=== PATIENT | male | born 1940 | race Caucasian/White ===

== ENCOUNTER 2017-04-01 12:30 | Outpatient (RCR) | payer MEDICARE, BC ==
[2006-06-30 08:15] VITALS: TEMP 97.8
[2017-04-13] MEDS ORDERED: ZYRTEC 10MG10 MG PO (19:47)
[2017-04-13] MEDS ORDERED: ZOCOR 20MG20 MG PO (19:48)
[2017-04-13] MEDS ORDERED: TENORMIN 2525 MG/TAB PO (19:48)
[2017-04-16] MEDS ORDERED: VANCOCIN HCL1 GM IV (14:32)
[2017-04-16] MEDS ORDERED: ROCEPHIN 2GM VIAL21 IV (14:32)
[2017-05-07] MEDS ORDERED: CUBICIN 500MG500 MG IV (14:42)
[2017-05-07] MEDS ORDERED: CIPRO 500MG TA500 MG PO (14:43)
== END 2017-06-07 | disposition still patient (30) ==
LOC: MKS.ESL.PT
DX: M54.16 Radiculopathy, lumbar region (principal); M54.14 Radiculopathy, thoracic region
CPT/HCPCS: G8978-GP; G8979-GP

== ENCOUNTER 2017-04-13 18:54 | Inpatient (IN) | payer MEDICARE, BC ==
[~2017-04-13] VITALS: Ht 175.3 cm; Wt 84.2 kg
[2017-04-13 19:20] VITALS: BP 161/77; PULSE 95; TEMP 99.2
[2017-04-13] MEDS ORDERED: ZYRTEC 10MG10 MG PO (19:47)
[2017-04-13] MEDS ORDERED: TENORMIN 2525 MG/TAB PO (19:48)
[2017-04-13] MEDS ORDERED: ZOCOR 20MG20 MG PO (19:48)
[2017-04-13 20:46] LABS: BASO % 0.3 % (0.0-2.0); EOS # 0.3 (0.0-0.7); GRAN # 6.3 (1.4-6.5); GRAN % 70.4 % (42.2-75.2); LYMPH # 1.5 (1.2-3.4); LYMPH % 17.1 % (20.0-51.0); MEAN CELL VOLUME 90 fl (80.0-100.0); MEAN CORPUSCULAR HGB CONC 33 g/dl (33.0-37.0); MEAN PLATELET VOLUME 9.7 fl (7.4-10.4); MONO # 0.8 (0.1-0.6); MONO % 8.9 % (1.7-9.3); PLATELET COUNT 269 K/mm3 (130-400); RED BLOOD COUNT 3.85 M/mm3 (4.20-5.60)
[2017-04-13 20:47] LABS: HEMATOCRIT 34.5 % (42.0-52.0); HEMOGLOBIN 11.3 g/dl (13.5-18.0); INR 1.3 (0.8-3.0); MEAN CORPUSCULAR HEMOGLOBIN 29 pg (27.0-31.0); PROTHROMBIN TIME 14.4 SECONDS (9.7-12.8)
[2017-04-13 20:50] LABS: PARTIAL THROMBOPLASTIN TIME 32.6 SECONDS (26.0-37.0)
[2017-04-13 20:53] LABS: ADJUSTED CALCIUM 9.2 mg/dL (8.4-10.2); ALBUMIN 3.8 gm/dL (3.5-5.0); BILIRUBIN,TOTAL 0.6 mg/dL (0.0-1.0); CREATININE, serum 1.09 mg/dL (0.66-1.25); POTASSIUM 4.2 mmol/L (3.4-5.0); TOTAL PROTEIN 7.8 gm/dL (6.4-8.2)
[2017-04-13 23:54] VITALS: BP 124/69; PULSE 65; TEMP 98.7
[2017-04-14] VITALS (14 sets, daily range): BP systolic 111–156; BP diastolic 50–86; PULSE 52–73; TEMP 97.8–98.7
[2017-04-14 06:44] LABS: PH 6 (5-8); SQUAMOUS EPITHELIAL None Seen /hpf; URINE APPEARANCE Clear; URINE BACTERIA None Seen /hpf; URINE BILIRUBIN Negative (NEGATIVE); URINE BLOOD Negative (NEGATIVE); URINE COLOR Yellow; URINE GLUCOSE Negative (NEGATIVE); URINE KETONE Negative (NEGATIVE); URINE RBC 0-2 /hpf; URINE UROBILINOGEN Negative (NEGATIVE); URINE WBC 0-2 /hpf
[2017-04-15 04:37] VITALS: BP 118/64; PULSE 54; TEMP 98
[2017-04-15 07:22] VITALS: BP 123/65; PULSE 58; TEMP 98.2
[2017-04-15 12:05] VITALS: BP 131/70; PULSE 63; TEMP 98.4
[2017-04-15 15:42] VITALS: BP 104/59; PULSE 61; TEMP 98.5
[2017-04-15 20:37] VITALS: BP 114/57; PULSE 66; TEMP 97.3
[2017-04-16 00:21] VITALS: BP 119/64; PULSE 63; TEMP 98.4
[2017-04-16 04:10] VITALS: BP 115/59; PULSE 62; TEMP 98.7
[2017-04-16 06:38] LABS: BASO % 0.5 % (0.0-2.0); EOS # 0.3 (0.0-0.7); EOS % 4.8 % (0-4.0); GRAN # 3.5 (1.4-6.5); GRAN % 58.6 % (42.2-75.2); LYMPH # 1.4 (1.2-3.4); LYMPH % 24.4 % (20.0-51.0); MEAN CELL VOLUME 90 fl (80.0-100.0); MEAN CORPUSCULAR HGB CONC 32 g/dl (33.0-37.0); MEAN PLATELET VOLUME 9.5 fl (7.4-10.4); MONO # 0.7 (0.1-0.6); MONO % 11.5 % (1.7-9.3); PLATELET COUNT 223 K/mm3 (130-400); RED BLOOD COUNT 3.24 M/mm3 (4.20-5.60); REDCELL DISTRIBUTION WIDTH-CV 12.7 % (11.5-14.5); WHITE BLOOD COUNT 5.9 K/mm3 (4.8-10.8)
[2017-04-16 06:43] LABS: HEMATOCRIT 29.2 % (42.0-52.0); HEMOGLOBIN 9.4 g/dl (13.5-18.0); MEAN CORPUSCULAR HEMOGLOBIN 29 pg (27.0-31.0)
[2017-04-16 06:54] LABS: CREATININE, serum 0.83 mg/dL (0.66-1.25); POTASSIUM 3.9 mmol/L (3.4-5.0)
[2017-04-16 07:26] VITALS: BP 104/61; PULSE 63; TEMP 97.9
[2017-04-16 08:39] LABS: ERYTHROCYTE SEDIMENTATION RATE 88 mm/hr (0-30)
[2017-04-16 11:10] VITALS: BP 133/70; PULSE 61; TEMP 97.4
[2017-04-16] MEDS ORDERED: ROCEPHIN 2GM VIAL21 IV (14:32)
[2017-04-16] MEDS ORDERED: VANCOCIN HCL1 GM IV (14:32)
[2017-04-16 15:08] VITALS: BP 133/851; PULSE 73; TEMP 98
[2017-04-16 17:28] VITALS: BP 133/66; PULSE 56; TEMP 98.1
== END 2017-04-16 18:20 | disposition home or self-care (01) | DRG 552 ==
LOC: MEDICAL 18:54
PROVIDERS: Nurse Practitioner Family; Physician Assistant
PROC: 0JB73ZX Excision of Back Subcutaneous Tissue and Fascia, Percutaneous Approach, Diagnostic (ICD-10-PCS; principal; 2017-04-14)
DX: M46.44 Discitis, unspecified, thoracic region (principal); I10 Essential (primary) hypertension; M51.16 Intervertebral disc disorders with radiculopathy, lumbar region
CPT/HCPCS: 99223-AI; 99232-AI; 99239; A9585; C1751; J0696; J1644; J2250; J3010; J3370; J7030; J7050

== ENCOUNTER 2017-04-17 19:34 | Outpatient (RCR) | payer MEDICARE, BC ==
[~2017-04-17] VITALS: Ht 175.3 cm; Wt 82.7 kg
[2017-04-17 07:58] VITALS: BP 133/71; PULSE 63; TEMP 98
[2017-04-17 08:22] LABS: MEAN CELL VOLUME 89 fl (80.0-100.0); MEAN CORPUSCULAR HGB CONC 32 g/dl (33.0-37.0); MEAN PLATELET VOLUME 9.4 fl (7.4-10.4); PLATELET COUNT 249 K/mm3 (130-400); RED BLOOD COUNT 3.58 M/mm3 (4.20-5.60); REDCELL DISTRIBUTION WIDTH-CV 12.9 % (11.5-14.5); WHITE BLOOD COUNT 7.4 K/mm3 (4.8-10.8)
[2017-04-17 08:28] LABS: HEMATOCRIT 31.9 % (42.0-52.0); HEMOGLOBIN 10.3 g/dl (13.5-18.0); MEAN CORPUSCULAR HEMOGLOBIN 29 pg (27.0-31.0)
[2017-04-17 08:48] LABS: ADJUSTED CALCIUM 9.2 mg/dL (8.4-10.2); ALBUMIN 3.3 gm/dL (3.5-5.0); BILIRUBIN,TOTAL 0.5 mg/dL (0.0-1.0); C-REACTIVE PROTEIN 3.8 mg/dL (0.0-0.9); CALCIUM 8.6 mg/dL (8.4-10.2); CREATININE, serum 0.82 mg/dL (0.66-1.25); POTASSIUM 3.8 mmol/L (3.4-5.0)
[2017-04-17 08:52] LABS: ERYTHROCYTE SEDIMENTATION RATE 81 mm/hr (0-30)
[~2017-04-17 19:34] MED LIST: ROCEPHIN 2GM VIAL21 IV; TENORMIN 2525 MG/TAB PO; VANCOCIN HCL1 GM IV; ZOCOR 20MG20 MG PO; ZYRTEC 10MG10 MG PO
[2017-04-19 07:51] VITALS: BP 134/77; PULSE 59; TEMP 97.9
[2017-04-19 18:01] VITALS: BP 129/69; PULSE 55; TEMP 97.4
[2017-04-20 07:42] VITALS: BP 135/71; PULSE 59; TEMP 98
[2017-04-20 18:33] VITALS: BP 140/69; PULSE 60; TEMP 97.8
[2017-04-21 08:31] VITALS: BP 139/79; PULSE 66; TEMP 98
[2017-04-22 08:10] VITALS: BP 125/70; PULSE 59; TEMP 98
[2017-04-22 08:15] LABS: MEAN CELL VOLUME 89 fl (80.0-100.0); MEAN CORPUSCULAR HGB CONC 33 g/dl (33.0-37.0); MEAN PLATELET VOLUME 9.2 fl (7.4-10.4); PLATELET COUNT 282 K/mm3 (130-400); RED BLOOD COUNT 3.83 M/mm3 (4.20-5.60); REDCELL DISTRIBUTION WIDTH-CV 13.4 % (11.5-14.5); WHITE BLOOD COUNT 6.5 K/mm3 (4.8-10.8)
[2017-04-22 08:16] LABS: HEMATOCRIT 34.2 % (42.0-52.0); HEMOGLOBIN 11.1 g/dl (13.5-18.0); MEAN CORPUSCULAR HEMOGLOBIN 29 pg (27.0-31.0)
[2017-04-22 08:30] LABS: ALBUMIN 3.8 gm/dL (3.5-5.0); BILIRUBIN,TOTAL 0.4 mg/dL (0.0-1.0); C-REACTIVE PROTEIN 1.5 mg/dL (0.0-0.9); CALCIUM 8.8 mg/dL (8.4-10.2); CREATININE, serum 0.85 mg/dL (0.66-1.25); POTASSIUM 3.8 mmol/L (3.4-5.0); TOTAL PROTEIN 7.6 gm/dL (6.4-8.2)
[2017-04-22 08:35] LABS: VANCOMYCIN TROUGH 20.08 ug/mL (7.00-20.00)
[2017-04-22 09:33] LABS: ERYTHROCYTE SEDIMENTATION RATE 57 mm/hr (0-30)
[2017-04-22 19:04] VITALS: BP 142/76; PULSE 52; TEMP 98.3
[2017-04-23 07:45] VITALS: BP 135/78; PULSE 83; TEMP 97.2
[2017-04-23 18:21] VITALS: BP 130/72; PULSE 71; TEMP 98.8
[2017-04-24 07:37] VITALS: BP 142/73; PULSE 70; TEMP 98.3
[2017-04-25 08:23] VITALS: BP 128/74; PULSE 74; TEMP 98.4
[2017-04-26 08:13] LABS: MEAN CELL VOLUME 90 fl (80.0-100.0); MEAN CORPUSCULAR HGB CONC 33 g/dl (33.0-37.0); MEAN PLATELET VOLUME 9.2 fl (7.4-10.4); PLATELET COUNT 218 K/mm3 (130-400); RED BLOOD COUNT 3.82 M/mm3 (4.20-5.60); REDCELL DISTRIBUTION WIDTH-CV 13.7 % (11.5-14.5); WHITE BLOOD COUNT 4.6 K/mm3 (4.8-10.8)
[2017-04-26 08:14] LABS: HEMATOCRIT 34.2 % (42.0-52.0); HEMOGLOBIN 11.2 g/dl (13.5-18.0); MEAN CORPUSCULAR HEMOGLOBIN 29 pg (27.0-31.0)
[2017-04-26 08:19] VITALS: BP 121/75; PULSE 58; TEMP 97.8
[2017-04-26 08:31] LABS: C-REACTIVE PROTEIN 1.1 mg/dL (0.0-0.9)
[2017-04-26 08:38] LABS: ERYTHROCYTE SEDIMENTATION RATE 50 mm/hr (0-30)
[2017-04-26 08:57] LABS: VANCOMYCIN TROUGH 12.82 ug/mL (7.00-20.00)
[2017-04-26 18:04] VITALS: BP 130/70; PULSE 60; TEMP 98.6
[2017-04-27 08:02] VITALS: BP 126/66; PULSE 58; TEMP 97.9
[2017-04-28 07:44] VITALS: BP 145/88; PULSE 60; TEMP 98.2
[2017-04-28 17:56] VITALS: BP 144/77; PULSE 75; TEMP 99.7
[2017-04-29 07:49] VITALS: BP 136/66; PULSE 61; TEMP 98.1
[2017-04-29 20:45] VITALS: BP 134/69; PULSE 80; TEMP 98.2
[2017-04-30 08:33] VITALS: BP 143/71; PULSE 59; TEMP 97.7
[2017-04-30 17:54] VITALS: BP 130/71; PULSE 62; TEMP 97.8
[2017-05-01 07:45] VITALS: BP 140/74; PULSE 63; TEMP 98.6
[2017-05-02 07:48] VITALS: BP 134/74; PULSE 62; TEMP 97.9
[2017-05-02 08:04] LABS: BASO % 0.3 % (0.0-2.0); EOS # 0.4 (0.0-0.7); EOS % 10.4 % (0-4.0); GRAN % 59.1 % (42.2-75.2); HEMATOCRIT 32.8 % (42.0-52.0); HEMOGLOBIN 10.6 g/dl (13.5-18.0); LYMPH # 0.6 (1.2-3.4); LYMPH % 17.5 % (20.0-51.0); MEAN CELL VOLUME 89 fl (80.0-100.0); MEAN CORPUSCULAR HEMOGLOBIN 29 pg (27.0-31.0); MEAN CORPUSCULAR HGB CONC 32 g/dl (33.0-37.0); MEAN PLATELET VOLUME 9.4 fl (7.4-10.4); MONO # 0.4 (0.1-0.6); MONO % 12.4 % (1.7-9.3); PLATELET COUNT 176 K/mm3 (130-400); REDCELL DISTRIBUTION WIDTH-CV 13.7 % (11.5-14.5); WHITE BLOOD COUNT 3.4 K/mm3 (4.8-10.8)
[2017-05-02 08:19] LABS: ADJUSTED CALCIUM 8.8 mg/dL (8.4-10.2); ALBUMIN 3.5 gm/dL (3.5-5.0); BILIRUBIN,TOTAL 0.3 mg/dL (0.0-1.0); C-REACTIVE PROTEIN 1.3 mg/dL (0.0-0.9); CALCIUM 8.4 mg/dL (8.4-10.2); CREATININE, serum 0.8 mg/dL (0.66-1.25); TOTAL PROTEIN 7.1 gm/dL (6.4-8.2)
[2017-05-02 08:36] LABS: VANCOMYCIN TROUGH 19.98 ug/mL (7.00-20.00)
[2017-05-02 10:02] LABS: ERYTHROCYTE SEDIMENTATION RATE 35 mm/hr (0-30)
[2017-05-03 08:13] VITALS: BP 129/73; PULSE 65; TEMP 98.4
[2017-05-03 18:30] VITALS: BP 132/69; PULSE 71; TEMP 97.7
[2017-05-04 07:48] VITALS: BP 119/72; PULSE 71; TEMP 98.5
[2017-05-04 18:52] VITALS: BP 127/69; PULSE 68; TEMP 98.1
[2017-05-05 08:04] VITALS: BP 129/75; PULSE 74; TEMP 98.1
[2017-05-05 08:04] LABS: MEAN CELL VOLUME 88 fl (80.0-100.0); MEAN CORPUSCULAR HGB CONC 32 g/dl (33.0-37.0); MEAN PLATELET VOLUME 9.6 fl (7.4-10.4); PLATELET COUNT 179 K/mm3 (130-400); RED BLOOD COUNT 3.77 M/mm3 (4.20-5.60); WHITE BLOOD COUNT 3.5 K/mm3 (4.8-10.8)
[2017-05-05 08:05] LABS: HEMATOCRIT 33.1 % (42.0-52.0); HEMOGLOBIN 10.7 g/dl (13.5-18.0); MEAN CORPUSCULAR HEMOGLOBIN 28 pg (27.0-31.0)
[2017-05-05 08:06] LABS: ADD PATHOLOGY DIFF REVIEW NO
[2017-05-05 09:30] LABS: BAND 23 % (0-10); EOSINOPHIL 11 % (0-4); NEUTROPHILS 47 % (42.0-75.2); TOTAL CELLS COUNTED 100
[2017-05-05 09:31] LABS: PLATELET ESTIMATE NORMAL (NORMAL)
[2017-05-07] MEDS ORDERED: CUBICIN 500MG500 MG IV (14:42)
[2017-05-07] MEDS ORDERED: CIPRO 500MG TA500 MG PO (14:43)
[2017-05-07 14:52] VITALS: BP 131/73; PULSE 60; TEMP 97.1
[2017-05-09 09:00] VITALS: BP 130/75; PULSE 62; TEMP 97.6
[2017-05-10 08:07] VITALS: BP 129/68; PULSE 77; TEMP 97.8
[2017-05-10 08:22] LABS: HEMATOCRIT 38.3 % (42.0-52.0); HEMOGLOBIN 12.2 g/dl (13.5-18.0); MEAN CELL VOLUME 89 fl (80.0-100.0); MEAN CORPUSCULAR HEMOGLOBIN 28 pg (27.0-31.0); MEAN CORPUSCULAR HGB CONC 32 g/dl (33.0-37.0); MEAN PLATELET VOLUME 9.6 fl (7.4-10.4); PLATELET COUNT 267 K/mm3 (130-400); RED BLOOD COUNT 4.32 M/mm3 (4.20-5.60); WHITE BLOOD COUNT 6.5 K/mm3 (4.8-10.8)
[2017-05-10 08:39] LABS: C-REACTIVE PROTEIN 0.6 mg/dL (0.0-0.9)
[2017-05-10 08:50] LABS: ERYTHROCYTE SEDIMENTATION RATE 21 mm/hr (0-30)
[2017-05-11 08:00] VITALS: BP 110/68; PULSE 68; TEMP 97.9
[2017-05-12 08:02] VITALS: BP 120/72; PULSE 76; TEMP 97.9
[2017-05-13 08:54] VITALS: BP 117/68; PULSE 64; TEMP 97.7
[2017-05-14 08:31] VITALS: BP 117/67; PULSE 58; TEMP 98
[2017-05-15 08:06] VITALS: BP 121/70; PULSE 61; TEMP 98
[2017-05-16 08:10] VITALS: BP 110/65; PULSE 73; TEMP 98.1
[2017-05-17 08:24] VITALS: BP 107/76; PULSE 66; TEMP 98.1
[2017-05-17 08:56] LABS: BASO # 0.1 (0.0-0.2); BASO % 1.3 % (0.0-2.0); EOS # 0.4 (0.0-0.7); EOS % 5.3 % (0-4.0); GRAN # 4.1 (1.4-6.5); GRAN % 58.2 % (42.2-75.2); HEMATOCRIT 37.3 % (42.0-52.0); LYMPH # 1.7 (1.2-3.4); LYMPH % 24.6 % (20.0-51.0); MEAN CELL VOLUME 89 fl (80.0-100.0); MEAN CORPUSCULAR HEMOGLOBIN 29 pg (27.0-31.0); MEAN CORPUSCULAR HGB CONC 32 g/dl (33.0-37.0); MEAN PLATELET VOLUME 9.9 fl (7.4-10.4); MONO # 0.7 (0.1-0.6); MONO % 10.3 % (1.7-9.3); PLATELET COUNT 239 K/mm3 (130-400); RED BLOOD COUNT 4.17 M/mm3 (4.20-5.60); REDCELL DISTRIBUTION WIDTH-CV 14.2 % (11.5-14.5)
[2017-05-17 09:03] LABS: HEMOGLOBIN 11.9 g/dl (13.5-18.0)
[2017-05-17 09:09] LABS: ADJUSTED CALCIUM 8.8 mg/dL (8.4-10.2); ALANINE AMINOTRANSFERASE 42 U/L (21-72); ALBUMIN 3.9 gm/dL (3.5-5.0); ALKALINE PHOSPHATASE 72 U/L (50-136); ANION GAP 10 mmol/L (7-16); BILIRUBIN,TOTAL 0.6 mg/dL (0.0-1.0); BLOOD UREA NITROGEN 17 mg/dL (9-20); CALCIUM 8.7 mg/dL (8.4-10.2); CARBON DIOXIDE 25 mmol/L (22-30); CHLORIDE 105 mmol/L (98-107); CREATINE KINASE 63 U/L (55-170); CREATININE, serum 0.89 mg/dL (0.66-1.25); GLUCOSE 118 mg/dL (74-106); POTASSIUM 4.3 mmol/L (3.4-5.0); SODIUM 141 mmol/L (137-145); TOTAL PROTEIN 7.5 gm/dL (6.4-8.2)
[2017-05-17 09:12] LABS: C-REACTIVE PROTEIN < 0.5 mg/dL (0.0-0.9)
[2017-05-17 09:28] LABS: ERYTHROCYTE SEDIMENTATION RATE 15 mm/hr (0-30)
[2017-05-18 08:36] VITALS: BP 102/69; PULSE 76; TEMP 98
[2017-05-19 08:10] VITALS: BP 126/86; PULSE 70; TEMP 97.9
[2017-05-20 08:46] VITALS: BP 109/69; PULSE 59; TEMP 97.9
[2017-05-21 08:24] VITALS: BP 119/66; PULSE 62; TEMP 97.7
[2017-05-22 08:10] VITALS: BP 121/73; PULSE 66; TEMP 97.5
[2017-05-23 08:12] VITALS: BP 118/70; PULSE 58; TEMP 97.9
[2017-05-24 08:17] VITALS: BP 131/55; PULSE 70; TEMP 98.3
[2017-05-24 08:49] LABS: ADD PATHOLOGY DIFF REVIEW NO; HEMATOCRIT 37.1 % (42.0-52.0); MEAN CELL VOLUME 89 fl (80.0-100.0); MEAN CORPUSCULAR HEMOGLOBIN 28 pg (27.0-31.0); MEAN CORPUSCULAR HGB CONC 32 g/dl (33.0-37.0); MEAN PLATELET VOLUME 10.3 fl (7.4-10.4); PLATELET COUNT 222 K/mm3 (130-400); RED BLOOD COUNT 4.16 M/mm3 (4.20-5.60); REDCELL DISTRIBUTION WIDTH-CV 14.6 % (11.5-14.5); TOTAL CELLS COUNTED 0
[2017-05-24 09:02] LABS: ADJUSTED CALCIUM 8.9 mg/dL (8.4-10.2); ALBUMIN 4.1 gm/dL (3.5-5.0); BILIRUBIN,TOTAL 0.7 mg/dL (0.0-1.0); CREATININE, serum 0.92 mg/dL (0.66-1.25); POTASSIUM 3.7 mmol/L (3.4-5.0); TOTAL PROTEIN 7.5 gm/dL (6.4-8.2)
[2017-05-24 09:06] LABS: HEMOGLOBIN 11.8 g/dl (13.5-18.0)
[2017-05-24 09:10] LABS: ERYTHROCYTE SEDIMENTATION RATE 14 mm/hr (0-30)
[2017-05-25 08:06] VITALS: BP 142/76; PULSE 62; TEMP 97.8
[2017-05-26 08:11] VITALS: BP 135/74; PULSE 64; TEMP 97.6
[2017-05-27 08:16] VITALS: BP 121/77; PULSE 77; TEMP 98.3
[2017-05-28 08:01] VITALS: BP 117/7; PULSE 59; TEMP 98
[2017-05-29 07:59] VITALS: BP 114/62; PULSE 63; TEMP 97.8
[2017-05-30 07:40] VITALS: BP 111/65; PULSE 71; TEMP 97.6
[2017-05-31 08:31] VITALS: BP 115/65; PULSE 54; TEMP 98.2
[2017-05-31 08:39] LABS: HEMATOCRIT 37.5 % (42.0-52.0); HEMOGLOBIN 12.2 g/dl (13.5-18.0); MEAN CELL VOLUME 88 fl (80.0-100.0); MEAN CORPUSCULAR HEMOGLOBIN 29 pg (27.0-31.0); MEAN CORPUSCULAR HGB CONC 33 g/dl (33.0-37.0); MEAN PLATELET VOLUME 9.9 fl (7.4-10.4); PLATELET COUNT 193 K/mm3 (130-400); RED BLOOD COUNT 4.25 M/mm3 (4.20-5.60); REDCELL DISTRIBUTION WIDTH-CV 14.4 % (11.5-14.5); WHITE BLOOD COUNT 5.6 K/mm3 (4.8-10.8)
[2017-05-31 08:59] LABS: ERYTHROCYTE SEDIMENTATION RATE 12 mm/hr (0-30)
[2017-05-31 09:08] LABS: ADJUSTED CALCIUM 8.7 mg/dL (8.4-10.2); ALANINE AMINOTRANSFERASE 42 U/L (21-72); ALBUMIN 4.1 gm/dL (3.5-5.0); ALKALINE PHOSPHATASE 64 U/L (50-136); ANION GAP 9 mmol/L (7-16); BILIRUBIN,TOTAL 0.4 mg/dL (0.0-1.0); BLOOD UREA NITROGEN 20 mg/dL (9-20); CALCIUM 8.8 mg/dL (8.4-10.2); CARBON DIOXIDE 28 mmol/L (22-30); CHLORIDE 103 mmol/L (98-107); CREATINE KINASE 144 U/L (55-170); CREATININE, serum 0.97 mg/dL (0.66-1.25); GLUCOSE 100 mg/dL (74-106); POTASSIUM 4.2 mmol/L (3.4-5.0); SODIUM 140 mmol/L (137-145); TOTAL PROTEIN 7.5 gm/dL (6.4-8.2)
[2017-05-31 09:09] LABS: C-REACTIVE PROTEIN < 0.5 mg/dL (0.0-0.9)
[2017-06-01 08:09] VITALS: BP 118/67; PULSE 58; TEMP 97.6
[2017-06-02 08:24] VITALS: BP 111/73; PULSE 64; TEMP 98.2
[2017-06-03 08:12] VITALS: BP 101/55; PULSE 52; TEMP 98.1
[2017-06-04 08:10] VITALS: BP 115/65; PULSE 61; TEMP 97.7
[2017-06-05 08:37] VITALS: BP 118/74; PULSE 54; TEMP 97.6
[2017-06-06 08:12] VITALS: BP 120/70; PULSE 55; TEMP 97.4
[2017-06-07 07:18] VITALS: BP 116/70; PULSE 56; TEMP 98
[2017-06-07 07:52] LABS: HEMATOCRIT 37.6 % (42.0-52.0); MEAN CELL VOLUME 90 fl (80.0-100.0); MEAN CORPUSCULAR HEMOGLOBIN 29 pg (27.0-31.0); MEAN CORPUSCULAR HGB CONC 32 g/dl (33.0-37.0); MEAN PLATELET VOLUME 9.8 fl (7.4-10.4); PLATELET COUNT 169 K/mm3 (130-400); RED BLOOD COUNT 4.17 M/mm3 (4.20-5.60); REDCELL DISTRIBUTION WIDTH-CV 14.3 % (11.5-14.5); WHITE BLOOD COUNT 5.6 K/mm3 (4.8-10.8)
[2017-06-07 08:08] LABS: ADJUSTED CALCIUM 8.8 mg/dL (8.4-10.2); ALANINE AMINOTRANSFERASE 36 U/L (21-72); ALBUMIN 3.9 gm/dL (3.5-5.0); ALKALINE PHOSPHATASE 60 U/L (50-136); ANION GAP 10 mmol/L (7-16); BILIRUBIN,TOTAL 0.6 mg/dL (0.0-1.0); BLOOD UREA NITROGEN 17 mg/dL (9-20); CALCIUM 8.7 mg/dL (8.4-10.2); CARBON DIOXIDE 26 mmol/L (22-30); CHLORIDE 105 mmol/L (98-107); CREATINE KINASE 95 U/L (55-170); CREATININE, serum 0.94 mg/dL (0.66-1.25); GLUCOSE 100 mg/dL (74-106); POTASSIUM 4.3 mmol/L (3.4-5.0); SODIUM 141 mmol/L (137-145); TOTAL PROTEIN 7.2 gm/dL (6.4-8.2)
[2017-06-07 08:09] LABS: C-REACTIVE PROTEIN < 0.5 mg/dL (0.0-0.9)
[2017-06-07 08:19] LABS: ERYTHROCYTE SEDIMENTATION RATE 16 mm/hr (0-30)
== END 2017-06-07 08:42 | disposition home or self-care (01) ==
LOC: EUO 04-18 07:55
PROVIDERS: Family Medicine; Internal Medicine Infectious Disease
DX: M46.40 Discitis, unspecified, site unspecified (principal); M46.24 Osteomyelitis of vertebra, thoracic region; T37 Poisoning by, adverse effect of and underdosing of other systemic anti-infectives and antiparasitics
CPT/HCPCS: J0696; J0878; J1644; J3370; J7050

== ENCOUNTER → 2017-07-06 | Outpatient (CLI) | payer MEDICARE, BC ==
[~2017-07-06] MED LIST changes: +CIPRO 500MG TA500 MG PO; +CUBICIN 500MG500 MG IV
== END ==
LOC: COL.RAD 13:34
DX: M46.44 Discitis, unspecified, thoracic region (principal); R60.0 Localized edema; M89.8X8 Other specified disorders of bone, other site
CPT/HCPCS: A9585

== ENCOUNTER 2017-09-03 07:30 | Outpatient (RCR) | payer MEDICARE, BC ==
[2017-07-08 17:10] VITALS: BP 144/90; PULSE 86; TEMP 98.5
[2017-07-09 09:00] VITALS: BP 140/81; PULSE 59; TEMP 97.6
[2017-07-10 08:32] VITALS: BP 130/77; PULSE 66; TEMP 97.6
[2017-07-11 08:30] VITALS: BP 146/79; PULSE 65; TEMP 97.4
[2017-07-12 09:25] VITALS: BP 125/76; PULSE 64; TEMP 97.3
[2017-07-13 08:35] VITALS: BP 130/70; PULSE 57; TEMP 97.8
[2017-07-14 08:12] VITALS: BP 121/76; PULSE 58; TEMP 97.7
[2017-07-15 08:37] VITALS: BP 126/69; PULSE 57; TEMP 97.7
[2017-07-16 08:44] VITALS: BP 134/74; PULSE 62; TEMP 97.5
[2017-07-17 07:33] VITALS: BP 125/73; PULSE 61; TEMP 97.5
[2017-07-18 07:41] VITALS: BP 128/81; PULSE 54; TEMP 98
[2017-07-19 07:53] VITALS: BP 136/76; PULSE 56; TEMP 97.7
[2017-07-20 07:39] VITALS: BP 112/83; PULSE 54; TEMP 97.7
[2017-07-21 07:45] VITALS: BP 144/82; PULSE 54; TEMP 98.4
[2017-07-22 07:46] VITALS: BP 132/76; PULSE 54; TEMP 97.5
[2017-07-23 07:52] VITALS: BP 151/81; PULSE 51; TEMP 97.7
[2017-07-24 07:41] VITALS: BP 144/76; PULSE 57; TEMP 97.4
[2017-07-25 07:41] VITALS: BP 137/54; PULSE 57; TEMP 97.6
[2017-07-26 07:39] VITALS: BP 136/82; PULSE 60; TEMP 97.5
[2017-07-27 07:49] VITALS: BP 119/73; PULSE 62; TEMP 97.9
[2017-07-27 07:49] LABS: BASO # 0.1 (0.0-0.2); BASO % 0.7 % (0.0-2.0); EOS # 0.4 (0.0-0.7); EOS % 5.5 % (0-4.0); GRAN # 4.3 (1.4-6.5); GRAN % 63.1 % (42.2-75.2); HEMATOCRIT 40.2 % (42.0-52.0); HEMOGLOBIN 13.2 g/dl (13.5-18.0); LYMPH # 1.6 (1.2-3.4); LYMPH % 23.2 % (20.0-51.0); MEAN CELL VOLUME 87 fl (80.0-100.0); MEAN CORPUSCULAR HEMOGLOBIN 29 pg (27.0-31.0); MEAN CORPUSCULAR HGB CONC 33 g/dl (33.0-37.0); MEAN PLATELET VOLUME 9.5 fl (7.4-10.4); MONO # 0.5 (0.1-0.6); MONO % 7.2 % (1.7-9.3); PLATELET COUNT 224 K/mm3 (130-400); WHITE BLOOD COUNT 6.8 K/mm3 (4.8-10.8)
[2017-07-27 08:18] LABS: ADJUSTED CALCIUM 8.7 mg/dL (8.4-10.2); ALBUMIN 4.1 gm/dL (3.5-5.0); BILIRUBIN,TOTAL 0.5 mg/dL (0.0-1.0); CALCIUM 8.8 mg/dL (8.4-10.2); CREATININE, serum 0.96 mg/dL (0.66-1.25); POTASSIUM 3.9 mmol/L (3.4-5.0); TOTAL PROTEIN 8.1 gm/dL (6.4-8.2)
[2017-07-27 08:20] LABS: C-REACTIVE PROTEIN 0.5 mg/dL (0.0-0.9)
[2017-07-27 08:35] LABS: ERYTHROCYTE SEDIMENTATION RATE 32 mm/hr (0-30)
[2017-07-28 07:54] VITALS: BP 124/68; PULSE 53; TEMP 97.9
[2017-07-29 08:16] VITALS: BP 132/75; PULSE 57; TEMP 97.9
[2017-07-30 08:07] VITALS: BP 131/80; PULSE 57; TEMP 98
[2017-07-31 07:46] VITALS: BP 140/81; PULSE 59; TEMP 97.8
[2017-08-01 07:34] VITALS: BP 134/79; PULSE 54; TEMP 97.6
[2017-08-02 07:46] VITALS: BP 131/67; PULSE 60
[2017-08-02 08:34] LABS: BASO # 0.1 (0.0-0.2); EOS # 0.4 (0.0-0.7); EOS % 6.4 % (0-4.0); GRAN # 3.8 (1.4-6.5); GRAN % 61.8 % (42.2-75.2); HEMATOCRIT 37.2 % (42.0-52.0); HEMOGLOBIN 12.1 g/dl (13.5-18.0); LYMPH # 1.4 (1.2-3.4); LYMPH % 22.5 % (20.0-51.0); MEAN CELL VOLUME 88 fl (80.0-100.0); MEAN CORPUSCULAR HEMOGLOBIN 29 pg (27.0-31.0); MEAN CORPUSCULAR HGB CONC 33 g/dl (33.0-37.0); MEAN PLATELET VOLUME 9.5 fl (7.4-10.4); MONO # 0.5 (0.1-0.6); MONO % 8.1 % (1.7-9.3); PLATELET COUNT 207 K/mm3 (130-400); RED BLOOD COUNT 4.22 M/mm3 (4.20-5.60); WHITE BLOOD COUNT 6.1 K/mm3 (4.8-10.8)
[2017-08-02 08:47] LABS: ADJUSTED CALCIUM 8.7 mg/dL (8.4-10.2); ALANINE AMINOTRANSFERASE 43 U/L (21-72); ALBUMIN 3.8 gm/dL (3.5-5.0); ALKALINE PHOSPHATASE 68 U/L (50-136); ANION GAP 9 mmol/L (7-16); BILIRUBIN,TOTAL 0.4 mg/dL (0.0-1.0); BLOOD UREA NITROGEN 18 mg/dL (9-20); CALCIUM 8.5 mg/dL (8.4-10.2); CARBON DIOXIDE 27 mmol/L (22-30); CHLORIDE 106 mmol/L (98-107); CREATINE KINASE 142 U/L (55-170); CREATININE, serum 0.91 mg/dL (0.66-1.25); GLUCOSE 119 mg/dL (74-106); POTASSIUM 4.3 mmol/L (3.4-5.0); SODIUM 141 mmol/L (137-145); TOTAL PROTEIN 7.3 gm/dL (6.4-8.2)
[2017-08-02 09:04] LABS: C-REACTIVE PROTEIN < 0.5 mg/dL (0.0-0.9)
[2017-08-02 09:10] LABS: ERYTHROCYTE SEDIMENTATION RATE 20 mm/hr (0-30)
[2017-08-03 07:53] VITALS: BP 125/78; PULSE 69
[2017-08-04 07:49] VITALS: BP 126/65; PULSE 51; TEMP 98.3
[2017-08-05 07:46] VITALS: BP 122/68; PULSE 57; TEMP 97.6
[2017-08-06 07:39] VITALS: BP 121/71; PULSE 57; TEMP 97.4
[2017-08-07 09:31] VITALS: BP 128/66; PULSE 61; TEMP 97.6
[2017-08-08 08:23] VITALS: BP 127/78; PULSE 51; TEMP 98
[2017-08-09 07:51] LABS: BASO # 0.1 (0.0-0.2); BASO % 1.2 % (0.0-2.0); EOS # 0.6 (0.0-0.7); EOS % 8.5 % (0-4.0); GRAN # 3.5 (1.4-6.5); HEMATOCRIT 40.4 % (42.0-52.0); LYMPH # 1.9 (1.2-3.4); LYMPH % 28.5 % (20.0-51.0); MEAN CELL VOLUME 89 fl (80.0-100.0); MEAN CORPUSCULAR HEMOGLOBIN 29 pg (27.0-31.0); MEAN CORPUSCULAR HGB CONC 32 g/dl (33.0-37.0); MEAN PLATELET VOLUME 9.7 fl (7.4-10.4); MONO # 0.6 (0.1-0.6); MONO % 8.5 % (1.7-9.3); PLATELET COUNT 212 K/mm3 (130-400); RED BLOOD COUNT 4.55 M/mm3 (4.20-5.60); WHITE BLOOD COUNT 6.6 K/mm3 (4.8-10.8)
[2017-08-09 07:54] VITALS: BP 129/63; PULSE 46; TEMP 97.5
[2017-08-09 08:07] LABS: ADJUSTED CALCIUM 8.8 mg/dL (8.4-10.2); ALANINE AMINOTRANSFERASE 45 U/L (21-72); ALKALINE PHOSPHATASE 72 U/L (50-136); ANION GAP 11 mmol/L (7-16); BILIRUBIN,TOTAL 0.6 mg/dL (0.0-1.0); BLOOD UREA NITROGEN 21 mg/dL (9-20); CALCIUM 8.8 mg/dL (8.4-10.2); CARBON DIOXIDE 26 mmol/L (22-30); CHLORIDE 107 mmol/L (98-107); CREATINE KINASE 97 U/L (55-170); CREATININE, serum 1.01 mg/dL (0.66-1.25); GLUCOSE 122 mg/dL (74-106); POTASSIUM 4.3 mmol/L (3.4-5.0); SODIUM 143 mmol/L (137-145); TOTAL PROTEIN 7.7 gm/dL (6.4-8.2)
[2017-08-09 08:12] LABS: C-REACTIVE PROTEIN < 0.5 mg/dL (0.0-0.9); ERYTHROCYTE SEDIMENTATION RATE 16 mm/hr (0-30)
[2017-08-10 07:42] VITALS: BP 126/70; PULSE 61; TEMP 97.7
[2017-08-11 07:47] VITALS: BP 141/68; PULSE 53; TEMP 97.4
[2017-08-12 07:46] VITALS: BP 119/70; PULSE 62; TEMP 97.8
[2017-08-13 07:35] VITALS: BP 144/84; PULSE 57; TEMP 97.5
[2017-08-14 07:51] VITALS: BP 126/80; PULSE 57; TEMP 97.6
[2017-08-15 08:01] VITALS: BP 122/72; PULSE 57; TEMP 97.5
[2017-08-16 07:50] VITALS: BP 145/78; PULSE 55; TEMP 97.4
[2017-08-16 08:12] LABS: BASO # 0.1 (0.0-0.2); BASO % 0.9 % (0.0-2.0); EOS # 0.4 (0.0-0.7); EOS % 6.9 % (0-4.0); GRAN # 2.9 (1.4-6.5); GRAN % 53.4 % (42.2-75.2); HEMATOCRIT 39.7 % (42.0-52.0); LYMPH # 1.6 (1.2-3.4); LYMPH % 29.3 % (20.0-51.0); MEAN CELL VOLUME 89 fl (80.0-100.0); MEAN CORPUSCULAR HEMOGLOBIN 29 pg (27.0-31.0); MEAN CORPUSCULAR HGB CONC 33 g/dl (33.0-37.0); MEAN PLATELET VOLUME 10.8 fl (7.4-10.4); MONO # 0.5 (0.1-0.6); MONO % 9.1 % (1.7-9.3); PLATELET COUNT 195 K/mm3 (130-400); RED BLOOD COUNT 4.48 M/mm3 (4.20-5.60); WHITE BLOOD COUNT 5.4 K/mm3 (4.8-10.8)
[2017-08-16 08:21] LABS: ADJUSTED CALCIUM 8.8 mg/dL (8.4-10.2); ALANINE AMINOTRANSFERASE 45 U/L (21-72); ALBUMIN 4.1 gm/dL (3.5-5.0); ALKALINE PHOSPHATASE 79 U/L (50-136); ANION GAP 10 mmol/L (7-16); BILIRUBIN,TOTAL 0.7 mg/dL (0.0-1.0); BLOOD UREA NITROGEN 19 mg/dL (9-20); CALCIUM 8.9 mg/dL (8.4-10.2); CARBON DIOXIDE 27 mmol/L (22-30); CHLORIDE 105 mmol/L (98-107); CREATINE KINASE 148 U/L (55-170); CREATININE, serum 1.01 mg/dL (0.66-1.25); GLUCOSE 129 mg/dL (74-106); POTASSIUM 4.1 mmol/L (3.4-5.0); SODIUM 142 mmol/L (137-145); TOTAL PROTEIN 7.7 gm/dL (6.4-8.2)
[2017-08-16 08:36] LABS: C-REACTIVE PROTEIN < 0.5 mg/dL (0.0-0.9)
[2017-08-16 08:38] LABS: ERYTHROCYTE SEDIMENTATION RATE 10 mm/hr (0-30)
[2017-08-17 08:08] VITALS: BP 130/78; PULSE 59; TEMP 97.7
[2017-08-18 07:30] VITALS: BP 122/73; PULSE 96; TEMP 97.4
[2017-08-19 07:59] VITALS: BP 122/85; PULSE 69; TEMP 98
[2017-08-21 08:12] VITALS: BP 119/76; PULSE 61; TEMP 97.8
[2017-08-22 07:43] VITALS: BP 137/82; PULSE 58; TEMP 97.3
[2017-08-23 08:01] LABS: BASO # 0.1 (0.0-0.2); BASO % 0.9 % (0.0-2.0); EOS # 0.4 (0.0-0.7); EOS % 6.6 % (0-4.0); GRAN # 4.1 (1.4-6.5); GRAN % 61.8 % (42.2-75.2); HEMATOCRIT 40.4 % (42.0-52.0); HEMOGLOBIN 13.2 g/dl (13.5-18.0); LYMPH # 1.5 (1.2-3.4); LYMPH % 22.6 % (20.0-51.0); MEAN CELL VOLUME 89 fl (80.0-100.0); MEAN CORPUSCULAR HEMOGLOBIN 29 pg (27.0-31.0); MEAN CORPUSCULAR HGB CONC 33 g/dl (33.0-37.0); MEAN PLATELET VOLUME 10.2 fl (7.4-10.4); MONO # 0.5 (0.1-0.6); MONO % 7.8 % (1.7-9.3); PLATELET COUNT 198 K/mm3 (130-400); RED BLOOD COUNT 4.52 M/mm3 (4.20-5.60); WHITE BLOOD COUNT 6.7 K/mm3 (4.8-10.8)
[2017-08-23 08:05] VITALS: BP 123/68; PULSE 54; TEMP 97.9
[2017-08-23 08:15] LABS: ADJUSTED CALCIUM 8.8 mg/dL (8.4-10.2); ALBUMIN 4.1 gm/dL (3.5-5.0); BILIRUBIN,TOTAL 0.6 mg/dL (0.0-1.0); C-REACTIVE PROTEIN 0.6 mg/dL (0.0-0.9); CALCIUM 8.9 mg/dL (8.4-10.2); CREATININE, serum 0.96 mg/dL (0.66-1.25); POTASSIUM 4.2 mmol/L (3.4-5.0); TOTAL PROTEIN 7.7 gm/dL (6.4-8.2)
[2017-08-23 08:22] LABS: ERYTHROCYTE SEDIMENTATION RATE 12 mm/hr (0-30)
[2017-08-24 07:45] VITALS: BP 128/77; PULSE 88; TEMP 97.7
[2017-08-25 07:41] VITALS: BP 125/73; PULSE 58; TEMP 97.2
[2017-08-26 07:41] VITALS: BP 124/78; PULSE 73; TEMP 97.5
[2017-08-27 07:55] VITALS: BP 104/67; PULSE 60; TEMP 97.6
[2017-08-28 07:59] VITALS: BP 113/81; PULSE 62; TEMP 97.8
[2017-08-29 07:45] VITALS: BP 122/78; PULSE 56; TEMP 97.6
[2017-08-30 07:56] LABS: BASO % 0.7 % (0.0-2.0); EOS # 0.4 (0.0-0.7); EOS % 6.4 % (0-4.0); GRAN # 3.3 (1.4-6.5); GRAN % 56.9 % (42.2-75.2); HEMATOCRIT 37.4 % (42.0-52.0); HEMOGLOBIN 12.3 g/dl (13.5-18.0); LYMPH # 1.6 (1.2-3.4); LYMPH % 27.2 % (20.0-51.0); MEAN CELL VOLUME 88 fl (80.0-100.0); MEAN CORPUSCULAR HEMOGLOBIN 29 pg (27.0-31.0); MEAN CORPUSCULAR HGB CONC 33 g/dl (33.0-37.0); MEAN PLATELET VOLUME 9.6 fl (7.4-10.4); MONO # 0.5 (0.1-0.6); MONO % 8.6 % (1.7-9.3); PLATELET COUNT 178 K/mm3 (130-400); RED BLOOD COUNT 4.25 M/mm3 (4.20-5.60); WHITE BLOOD COUNT 5.8 K/mm3 (4.8-10.8)
[2017-08-30 08:13] LABS: ADJUSTED CALCIUM 8.8 mg/dL (8.4-10.2); ALANINE AMINOTRANSFERASE 39 U/L (21-72); ALBUMIN 4.1 gm/dL (3.5-5.0); ALKALINE PHOSPHATASE 77 U/L (50-136); ANION GAP 9 mmol/L (7-16); BILIRUBIN,TOTAL 0.7 mg/dL (0.0-1.0); BLOOD UREA NITROGEN 23 mg/dL (9-20); C-REACTIVE PROTEIN < 0.5 mg/dL (0.0-0.9); CALCIUM 8.9 mg/dL (8.4-10.2); CARBON DIOXIDE 27 mmol/L (22-30); CHLORIDE 106 mmol/L (98-107); CREATINE KINASE 162 U/L (55-170); CREATININE, serum 0.97 mg/dL (0.66-1.25); GLUCOSE 101 mg/dL (74-106); POTASSIUM 4.4 mmol/L (3.4-5.0); SODIUM 141 mmol/L (137-145); TOTAL PROTEIN 7.4 gm/dL (6.4-8.2)
[2017-08-30 08:20] LABS: ERYTHROCYTE SEDIMENTATION RATE 6 mm/hr (0-30)
[2017-08-31 07:30] VITALS: BP 134/80; PULSE 63; TEMP 98
[2017-09-01 07:30] VITALS: BP 127/77; PULSE 57; TEMP 97.5
[2017-09-02 07:49] VITALS: BP 116/73; PULSE 59; TEMP 97.5
[~2017-09-03] VITALS: Ht 175.3 cm; Wt 90.0 kg
[~2017-09-03 07:30] MED LIST changes: +INVANZ INJ1 G/VIAL IV
[2017-09-03 07:49] VITALS: BP 131/67; PULSE 59; TEMP 97.5
== END 2017-09-03 10:32 | disposition home or self-care (01) ==
LOC: EUO 07:30
PROVIDERS: Internal Medicine Infectious Disease
DX: M46.24 Osteomyelitis of vertebra, thoracic region (principal); M46.44 Discitis, unspecified, thoracic region
CPT/HCPCS: C1751; C1894; J0878; J1335; J1644; J7050

== ENCOUNTER 2018-08-15 12:45 | Outpatient (RCR) | payer MEDICARE, BC | END 2018-08-16 10:10 | disposition home or self-care (01) | LOC: MKS.ESL.PT 12:45 | DX: M25.561 Pain in right knee (principal); M79.604 Pain in right leg | CPT/HCPCS: G8978-GP; G8979-GP; G8980-GP ==

== ENCOUNTER 2021-04-17 09:00 | Outpatient (RCR) | payer MEDICARE, BC | END 2021-07-10 | disposition still patient (30) | LOC: MKS.ESL.PT | DX: M54.2 Cervicalgia (principal) ==

== ENCOUNTER 2021-08-08 10:15 | Outpatient (RCR) | payer MEDICARE, BC | END 2021-10-09 | disposition home or self-care (01) | LOC: MKS.ESL.PT | DX: M54.2 Cervicalgia (principal) ==

== ENCOUNTER → 2023-01-22 | Outpatient (RCR) | payer MEDICARE, BC | END | disposition home or self-care (01) | LOC: MKS.ESL.PT | DX: H81.10 Benign paroxysmal vertigo, unspecified ear (principal) ==